=== PATIENT | female | born 1955 | race Caucasian/White ===

== ENCOUNTER 2017-02-28 11:43 | Emergency (ER) | payer OTHER ==
[~2017-02-28] VITALS: Ht 157.5 cm; Wt 85.0 kg
[~2017-02-28 11:43] MED LIST: ADVIN25050 INH; ASPUNK PO; SERT50TA PO; SIMV40TA2 PO; [UNRECOGNIZED DRUG - OTHER] PO
[2017-02-28 11:53] VITALS: TEMP 36.8; Ht 157.5 cm; Wt 85.0 kg
[2017-02-28] MEDS ORDERED: SODIUM CHLORIDE 0.9% 1000ML 1,000 ML IV STA (12:14)
[2017-02-28] MEDS ORDERED: ONDANSETRON INJ 2 MG/ML 2 ML VIAL IV STA (12:14)
[2017-02-28 12:25] LABS: BASO % 0.1 %; BASO ABS # 0.01 K/uL (0-0.2); COMPLETE YES; EOS % 2.1 %; HEMATOCRIT 39.6 % (37-47); IG% 0.1 %; LYMPH ABS # 2.32 K/uL (1.2-3.4); MEAN CELL VOLUME 86.7 fL (80-100); MEAN CORPUSCULAR HGB CONC 34.6 g/dl (32-36); MEAN PLATELET VOLUME 10.9 fL (7.4-10.4); MONO % 11.6 %; NEUT % 55.1 %; PLATELET COUNT 261 K/uL (130-400); RED BLOOD COUNT 4.57 M/uL (4.2-5.4); WHITE BLOOD COUNT 7.48 K/uL (4.8-10.8)
[2017-02-28] MEDS ORDERED: DTRSR/10 PO (12:30)
[2017-02-28] MEDS ORDERED: TPRSR/25 PO (12:30)
[2017-02-28 12:36] LABS: BUN/CREATININE RATIO 15.2 (10-20); CALCIUM 8.8 mg/dl (8.5-10.1); CREATININE 0.83 mg/dl (0.60-1.20); POTASSIUM 4.2 mmol/L (3.5-5.1)
[2017-02-28 13:00] LABS: URINE APPEARANCE CLEAR (CLEAR); URINE BILIRUBIN NEG (NEG); URINE COLOR YELLOW; URINE NITRITE NEG (NEG); URINE SPECIFIC GRAVITY 1.009 (1.000-1.030); UROBILINOGEN NEG (NEG)
[2017-02-28 13:06] LABS: MANUAL MICROSCOPIC REQUIRED? NO; REVIEW REQ? NO
--- NOTE | 2017-02-28 13:38 | DIAGNOSTIC IMAGING REPORT ---
ABDOMINAL ULTRASOUND, RIGHT UPPER QUADRANT HISTORY: Right upper quadrant abdominal pain. COMPARISON: Abdominal ultrasound April 14, 2006. FINDINGS: Liver is sonographically normal. There are multiple stones within the gallbladder as well as sludge. There is no gallbladder wall thickening or pericholecystic fluid. There is no biliary ductal dilatation. The pancreas is obscured by overlying bowel gas. There is no right hydronephrosis. There is a 1.3 cm cystic lesion within the upper pole of the right kidney that contains a thin septation. This is likely benign. There is a possible nonobstructing right renal calculus. IMPRESSION: 1. Cholelithiasis. No gallbladder wall thickening. 2. Obscured pancreas due to overlying bowel gas. 3. No biliary ductal dilatation. Electronically signed by: Davian Mckeon M.D. 02/28/2017 1:37 PM Dictated Date/Time: 02/28/2017 1:34 PM
[2017-02-28 14:32] VITALS: BP 112/70; PULSE 52; O2SAT 98
--- NOTE | 2017-03-01 12:37 | EMERGENCY ROOM VISIT NOTE ---
ED Visit Note First contact with patient: 12:02 Chief Complaint: Abdominal pain. History of Present Illness: Ms. Morgan is a 62 year-old white female who ambulates into the ED complaining of epigastric and right upper quadrant abdominal pain. Historically patient reports Patient was sent into the ED by her PCP, Dr. Alba for her pain, concerning for cholecystitis. Patient reports Monday, 4 days ago, at approximately 9 PM patient reports she had an acute onset of severe right upper quadrant pain. This lasted approximately 8 hours and then self resolved. She describes her discomfort at that time as if something was 'exploding in her abdomen." She rates her discomfort at that time 09/05. The pain was radiating through the abdomen and into the back. Associated with her pain she reports she was nauseated and had multiple episodes of vomiting. She did not take any medications for her symptoms. Currently she denies any abdominal pain but does report that she has tenderness in the epigastrium and right upper quadrant. Her discomfort is only on the areas palpated and sometimes with body movements. She still has not taken any medication for her discomfort prior to arrival at the hospital. She has resolution of vomiting but still feels nauseated, she has noted a "decreased appetite and that food does not taste right", and reports that she has been having occasional chills and questions if she has been having fevers. Currently she denies previous abdominal surgeries, skin eruptions, skin color changes, upper respiratory tract symptoms, shortness of breath, chest pain, diarrhea, constipation, rectal bleeding, black/tarry stools, urinary symptoms, hematuria, vaginal bleeding, vaginal discharge, back/flank pain. Review of Systems: As noted above in history of present illness. All body systems were reviewed and found to be negative as noted above. Past Medical History: Asthma, hypertension, dyslipidemia, anxiety. Current Medications: Medications Dose Route/Sig Max Daily Dose Days Date Category Oxybutynin Chloride ER (Oxybutynin Chloride) 10 Mg Tabcr 1 Tab PO HS 02/28/17 Reported Metoprolol Succinate ER (Metoprolol Succinate) 25 Mg Tabcr 1 Tab PO DAILY 02/28/17 Reported Zocor (Simvastatin) 40 Mg Tab 40 Mg PO QPM 06/04/09 Reported Zoloft (Sertraline HCl) 50 Mg Tab 1 Tab PO HS 06/06/06 Reported Allergies to Medications: Ibuprofen, sulfa. Social History: Patient is currently employed; she feels safe at home environment; she denies tobacco and alcohol use. Physical Examination: Vital Signs: Date Time Temp Pulse Resp B/P Pulse Ox O2 Delivery O2 Flow Rate FiO2 02/28/17 14:32 52 18 112/70 98 02/28/17 13:38 55 18 134/77 98 Room Air 02/28/17 12:56 62 02/28/17 11:53 36.8 56 17 142/77 97 Room Air GENERAL: 62-year-old female in mild distress due to pain, nontoxic-appearing, afebrile and hemodynamically stable. NEUROLOGICAL: Awake, alert and oriented to person, place and time. Answering questions appropriately and following commands. Normal gait. Good hand eye coordination. SKIN: Warm, dry and pink. No soft tissue eruptions or trauma noted. HEENT: Atraumatic and normocephalic. PERRLA. Sclera white and conjunctiva pink. Oral cavity moist and pink. Pharynx is nonerythematous or edematous. Speech normal. No lymphadenopathy. Trachea midline. No jugular venous distention. BACK: No tenderness over the bony spine. No CVA tenderness. THORAX: Lungs sounds are clear to auscultation and equal bilaterally with symmetrical chest wall. No wheezing, rales or rhonchi. No crepitus, tenderness , subcutaneous air or deformities noted. HEART: Regular rate and rhythm. No gallops, rubs or murmurs are appreciated. ABDOMEN: Flat and soft with [id number] tenderness in the epigastrium and right upper quadrant with guarding. Decreased bowel sounds in all quadrants. No rigidity or organomegaly. EXTREMITIES: Moves all extremities well on command and with purpose. All distal neurovascular statuses are intact and equal bilaterally. ED Course: Patient is assessed as noted above. Laboratory Testing: Test 02/28/17 12:05 02/28/17 12:45 Range/Units White Blood Count 7.48 4.8-10.8 K/uL Red Blood Count 4.57 4.2-5.4 M/uL Hemoglobin 13.7 12.0-16.0 g/dL Hematocrit 39.6 37-47 % Mean Corpuscular Volume 86.7 80-100 fL Mean Corpuscular Hemoglobin 30.0 25-34 pg Mean Corpuscular Hemoglobin Concent 34.6 32-36 g/dl Platelet Count 261 130-400 K/uL Mean Platelet Volume 10.9 7.4-10.4 fL Neutrophils (%) (Auto) 55.1 % Lymphocytes (%) (Auto) 31.0 % Monocytes (%) (Auto) 11.6 % Eosinophils (%) (Auto) 2.1 % Basophils (%) (Auto) 0.1 % Neutrophils # (Auto) 4.11 1.4-6.5 K/uL Lymphocytes # (Auto) 2.32 1.2-3.4 K/uL Monocytes # (Auto) 0.87 0.11-0.59 K/uL Eosinophils # (Auto) 0.16 0-0.5 K/uL Basophils # (Auto) 0.01 0-0.2 K/uL RDW Standard Deviation 40.7 36.4-46.3 fL RDW Coefficient of Variation 12.8 11.5-14.5 % Immature Granulocyte % (Auto) 0.1 % Immature Granulocyte # (Auto) 0.01 0.00-0.02 K/uL Sodium Level 141 136-145 mmol/L Potassium Level 4.2 3.5-5.1 mmol/L Chloride Level 106 98-107 mmol/L Carbon Dioxide Level 28 21-32 mmol/L Anion Gap 7.0 3-11 mmol/L Blood Urea Nitrogen 13 7-18 mg/dl Creatinine 0.83 0.60-1.20 mg/dl Est Creatinine Clear Calc Drug Dose 71.1 ml/min Estimated GFR () 87.6 Estimated GFR (Non- 75.6 BUN/Creatinine Ratio 15.2 10-20 Random Glucose 87 70-99 mg/dl Calcium Level 8.8 8.5-10.1 mg/dl Total Bilirubin 0.7 0.2-1 mg/dl Direct Bilirubin 0.2 0-0.2 mg/dl Aspartate Amino Transf (AST/SGOT) 22 15-37 U/L Alanine Aminotransferase (ALT/SGPT) 55 12-78 U/L Alkaline Phosphatase 94 45-117 U/L Total Protein 7.5 6.4-8.2 gm/dl Albumin 4.2 3.4-5.0 gm/dl Lipase 91 73-393 U/L Urine Color YELLOW Urine Appearance CLEAR CLEAR Urine pH 8.0 4.5-7.5 Urine Specific [place] 1.009 1.000-1.030 Urine Protein NEG NEG Urine Glucose (UA) NEG NEG Urine Ketones NEG NEG Urine Occult Blood NEG NEG Urine Nitrite NEG NEG Urine Bilirubin NEG NEG Urine Urobilinogen NEG NEG Urine Leukocyte Esterase NEG NEG RUQ Ultrasound: Was reviewed by myself and read by the radiologist showing cholelithiasis with multiple visible stones and sludge. There was no gallbladder wall thickening or purpura colistin fluid. There is no ductal dilatation. The pancreas wasn't secured by bowel gas. There was no hydronephrosis. There was a cystic lesion in the upper pole right kidney that contains a thin septation of questionable etiology. Patient was hydrated with normal saline and initially received 4 mg of Zofran IV for nausea; she refused pain medications Patient was reassessed multiple times during her stay in the emergency department. Patient's case was reviewed with Dr. Campos; we agreed on diagnostic approach, treatment, disposition and plan. Clinical Impression: Right upper quadrant abdominal pain. Cholelithiasis. Decision-Making: Initially my differential diagnosis I considered hepatitis, pancreatitis, cholecystitis, constipation, bowel obstruction, kidney stone, pyelonephritis and other causes. Disposition: Patient discharged home in stable condition; prior to departure she was reassessed and subjectively reported she was feeling better and was no longer nauseated. I did reassess her abdomen she was dry clipper tender in the right upper quadrant and epigastrium. Plan: Patient was encouraged to use 650 mg of acetaminophen every 6 hours as needed for pain. Patient was encouraged to use a bland diet and avoid late night eating. After her bland diet she should use a low-fat diet. Patient was encouraged to call her family physician and inform them of today's ED visit and request follow-up care and treatment. Patient was referred to Dr. Efe Shaw, general surgery for surgical evaluation. Patient was encouraged return ED for worsening/uncontrolled pain, uncontrolled vomiting, fevers or any new/concerning symptoms. Patient was encouraged to follow-up with personal physician for recheck in 1-2 days. Patient was encouraged return the ED for worsening symptoms, fevers, or any new/ concerning symptoms.
[2017-03-30] MEDS ORDERED: HYDR-5688 PO (09:04)
== END 2017-02-28 14:35 | disposition home or self-care (01) ==
LOC: C.EDB 11:45
DX: R10.11 Right upper quadrant pain (principal); K80.20 Calculus of gallbladder without cholecystitis without obstruction; J45.909 Unspecified asthma, uncomplicated; I10 Essential (primary) hypertension; E78.5 Hyperlipidemia, unspecified

== ENCOUNTER → 2017-03-30 | Day surgery (SDC) | payer OTHER ==
[2017-03-16 11:45] VITALS: BMI 33.0
--- NOTE | 2017-03-16 12:17 | PAT Medication Instructions ---
Service Date Mar 16, 2017. Current Home Medication List Metoprolol Succinate (Metoprolol Succinate ER), 1 TAB PO HS Oxybutynin Chloride (Oxybutynin Chloride ER), 1 TAB PO HS Sertraline (Zoloft), 1 TAB PO HS Simvastatin (Zocor), 40 MG PO QPM Medication Instructions For Your Scheduled Surgery - Take the following medications as scheduled the night before surgery: Simvastatin (Zocor), 40 MG PO QPM Sertraline (Zoloft), 1 TAB PO HS Metoprolol Succinate (Metoprolol Succinate ER), 1 TAB PO HS Oxybutynin Chloride (Oxybutynin Chloride ER), 1 TAB PO HS If you have any questions please call us at [phone] (Dominique Tirado PA-C) or [phone] or [phone]
[~2017-03-30] VITALS: Ht 160 cm; Wt 84.6 kg
[~2017-03-30] MED LIST changes: -ADVIN25050 INH; -ASPUNK PO; +ATROPINE SULFATE 0.1 MG/ML 5ML SYR IV PRN; +BUPIVACAINE/EPINEPHRINE 0.5% MPF 1:200,000 30 ML VIAL ONE; +CEFAZOLIN 2000 MG/60 ML D5W 60 ML IV SCH; +DEXAMETHASONE SOD INJ 4 MG/ML VIAL ONE; +DTRSR/10 PO; +EpHEDrine SULFATE 50MG/5ML SYR ONE; +EpHEDrine SULFATE INJ 50 MG/ML AMP IV PRN; +FENTANYL CITRATE INJ 50 MCG/1 ML 2 ML VIAL IV PRN; +FENTANYL CITRATE INJ 50 MCG/1 ML 2 ML VIAL ONE; +GLYCOPYRROLATE INJ 0.2 MG/ML VIAL ONE; +HEPARIN SOD 5000 UNIT/0.5 ML CARP SC SCH; +HYDR-5688 PO; +HYDROCODONE/ACETAMOPHEN 5/325MG TAB PO PRN; +HydrALAZINE HCL 20 MG/ML VIAL ONE; +LACTATED RINGER'S 1000ML 1,000 ML IV SCH; +LACTATED RINGER'S 1000ML IV SCH; +LIDOCAINE HCL 2% 2 ML VIAL (20MG/ML) ONE; +MIDAZOLAM HCL 1 MG/ML 2ML VIAL ONE; +MoRPHine SULFATE 4 MG/ML 1 ML CARP\\VIAL IV PRN; +NEOSTIGMINE METHYLSULFATE 5 MG/5 ML SYR ONE; +NURSING VERBAL MED ORDER ONE; +ONDANSETRON INJ 2 MG/ML 2 ML VIAL IV PRN; +ONDANSETRON INJ 2 MG/ML 2 ML VIAL ONE; +PROPOFOL IV EMULSION 10 MG/ML 20 ML VIAL IV ONE; +ROCURONIUM BROMIDE 10 MG/ML 5 ML VIAL ONE; +TPRSR/25 PO; -[UNRECOGNIZED DRUG - OTHER] PO
[2017-03-30 07:18] VITALS: BP 133/91; PULSE 63; TEMP 37; O2SAT 98; Ht 160 cm; Wt 84.6 kg
--- NOTE | 2017-03-30 07:49 | History & Physical Bridge Note ---
H&P Re-Evaluation Bridge Note: I have examined the patient, reviewed the History & Physical and in the interval since the performance of the History & Physical I have noted the following changes of clinical significance: No changes noted
--- NOTE | 2017-03-30 09:07 | Discharge Instructions ---
Discharge Instructions Date of Service March 30, 2017. Admission Reason for Admission: Cholelithiasis Discharge Discharge Diagnosis / Problem: Laparoscopic cholecystectomy Discharge Goals Goal(s): Decrease discomfort Activity Recommendations Activity Limitations: as noted below Lifting Limitations: no more than 10 pounds Shower/Bathe: no limitations Driving or Machine Use: resume 3 days after discharge . Instructions / Follow-Up Instructions / Follow-Up Dr. Ornelas in 2 weeks, call [phone] if you do not already have an appt Current Hospital Diet Patient's current hospital diet: Discharge Diet Recommended Diet: Regular Diet Procedures Procedures Performed: Laparoscopic Cholecystectomy Pending Studies Studies pending at discharge: no Medical Emergencies . Who to Call and When: Medical Emergencies: If at any time you feel your situation is an emergency, please call 911 immediately. . Non-Emergent Contact Non-Emergency issues call your: Surgeon Call Non-Emergent contact if: you have a fever, temperature is above 101.5, your pain is not controlled, wound has increased redness . "Provider Documentation" section prepared by Chato Marin. . VTE Core Measure Inpt VTE Proph given/why not?: SCD's
--- NOTE | 2017-03-30 09:08 | [facility] Operative Report ---
Operative Report Operative Date March 30, 2017. Pre-Operative Diagnosis Cholelithiasis Post-Operative Diagnosis same Procedure(s) Performed lap leola Surgeon Dr Efe Ornelas Industrial Engineering Technologist Surgeon(s) Chato Marin Estimated Blood Loss 10ml Findings normal anatomy Specimens A: Gallbladder and contents Anesthesia get Complication(s) None Disposition Recovery Room / PACU I attest to the content of the Intraoperative Record and any orders documented therein. Any exceptions are noted below.
[2017-03-30 10:00] VITALS: BP 151/77; PULSE 65; TEMP 36.6; O2SAT 93
--- NOTE | 2017-03-30 10:10 | Anesthesiology Progress Note ---
Anesthesia Post Op Note Date & Time March 30, 2017 at 10:09 Vital Signs Pain Intensity: 5 Vital Signs Past 12 Hours Date Time Temp Pulse Resp B/P Pulse Ox O2 Delivery O2 Flow Rate FiO2 03/30/17 09:55 66 14 164/84 94 03/30/17 09:51 66 10 92 03/30/17 09:51 67 10 03/30/17 09:50 36.6 65 14 164/66 94 Mask 03/30/17 09:50 164/66 03/30/17 09:46 67 15 162/83 100 03/30/17 09:46 67 15 03/30/17 09:41 68 13 03/30/17 09:41 67 13 95 03/30/17 09:40 175/82 03/30/17 09:39 167/82 03/30/17 09:36 67 12 95 03/30/17 09:36 67 12 03/30/17 09:35 189/90 03/30/17 09:35 189/90 03/30/17 09:34 66 12 03/30/17 09:34 66 12 03/30/17 09:34 66 12 97 03/30/17 09:34 66 12 97 03/30/17 09:30 192/97 03/30/17 09:30 192/97 03/30/17 09:29 67 13 99 03/30/17 09:29 68 13 03/30/17 09:29 68 13 03/30/17 09:29 67 13 99 03/30/17 09:25 191/89 03/30/17 09:25 191/89 03/30/17 09:24 70 10 100 03/30/17 09:24 70 10 100 03/30/17 09:24 69 10 03/30/17 09:24 69 10 03/30/17 09:20 190/97 03/30/17 09:20 190/97 03/30/17 09:19 71 10 03/30/17 09:19 71 10 03/30/17 09:19 71 10 98 03/30/17 09:19 71 10 98 03/30/17 09:15 197/99 03/30/17 09:15 197/99 03/30/17 09:14 77 19 192/102 100 03/30/17 09:14 77 19 192/102 100 03/30/17 09:14 77 19 03/30/17 09:14 77 19 03/30/17 09:10 184/102 03/30/17 09:10 184/102 03/30/17 09:09 36.4 90 16 153/97 98 Mask 10 03/30/17 09:09 86 16 03/30/17 09:09 86 16 153/97 99 03/30/17 09:09 86 16 153/97 99 03/30/17 09:09 86 16 03/30/17 07:18 37. 63 18 133/91 98 Room Air Notes Mental Status: alert / awake / arousable, participated in evaluation Pt Amnestic to Procedure: Yes Nausea / Vomiting: adequately controlled Pain: adequately controlled Airway Patency, RR, SpO2: stable & adequate BP & HR: stable & adequate Hydration State: stable & adequate Anesthetic Complications: no major complications apparent
[2017-03-30 10:30] VITALS: BP 164/73; PULSE 69; TEMP 36.7; O2SAT 99
--- NOTE | 2017-03-31 11:32 | OPERATIVE REPORT ---
DATE OF OPERATION: 03/30/2017 PREOPERATIVE DIAGNOSIS: Symptomatic cholelithiasis. POSTOPERATIVE DIAGNOSIS: Same. PROCEDURE: Laparoscopic cholecystectomy. SURGEON: Dr. Ornelas. PROTOCOL OFFICER: Misael Marin PA-C. ESTIMATED BLOOD LOSS: Approximately 10 mL. COMPLICATIONS: No immediate. ANESTHESIA: General. The patient tolerated the procedure well. OPERATION AND FINDINGS: OPERATIVE NOTE: After informed consent was obtained, the patient was taken to the operating suite and placed in supine position. After successful intubation, the abdomen was sterilely prepped and draped in usual fashion. A periumbilical incision made with an 11 blade scalpel and carried down through the soft tissue using electrocautery. Anterior rectus fascia was opened using electrocautery and two #0 Vicryl stay sutures were placed. Peritoneum was entered using blunt finger penetration. A finger sweep was performed to take down adhesions. A 12 mm Majo trocar was placed and the abdomen was insufflated to 18 mmHg. Laparoscope was inserted and the abdomen examined 360 degrees. A subxiphoid 5 mm port and 2 right upper quadrant 5 mm ports were placed under direct vision. The patient was placed in reverse Trendelenburg position slightly airplaned to the left. The gallbladder was grasped and elevated superiorly and laterally. It was not acutely inflamed. We were able to use a [place] dissector to take down adhesions around the neck of the gallbladder. The cystic duct was identified and skeletonized. It was clipped in place proximally and once distally and transected using laparoscopic scissor. In similar fashion, the cystic artery was identified, skeletonized, clipped and divided as well. The gallbladder was removed from the gallbladder fossa intact. It was placed into an EndoCatch bag. Any small bleeding points in the gallbladder fossa were controlled using electrocautery. Thorough irrigation was performed. At the end of the procedure, there was adequate hemostasis and no evidence of any bile leakage. We looked under the left lobe of the liver around the upper abdomen and saw no other gross abnormalities. The gallbladder was removed from the umbilical incision and all the trocars were removed and the abdomen was desufflated. The fascia of the camera port was closed using 0 Vicryl in a [id number] fashion. All the wounds were irrigated and closed using 4-0 Monocryl. Marcaine was injected around them for postoperative analgesia and skin glue used as a dressing. The patient was awakened, extubated, and transferred to recovery in stable condition. I attest to the content of the Intraoperative Record and any orders documented therein. Any exceptio ns are noted below.
== END | disposition home or self-care (01) ==
LOC: C.ACU 06:53
PROVIDERS: ATTEND Surgery
DX: K80.12 Calculus of gallbladder with acute and chronic cholecystitis without obstruction (principal); J45.909 Unspecified asthma, uncomplicated; Z85.43 Personal history of malignant neoplasm of ovary; Z79.899 Other long term (current) drug therapy

== ENCOUNTER → 2017-08-21 | Outpatient (CLI) | payer OTHER ==
[~2017-08-21] MED LIST changes: -ATROPINE SULFATE 0.1 MG/ML 5ML SYR IV PRN; -BUPIVACAINE/EPINEPHRINE 0.5% MPF 1:200,000 30 ML VIAL ONE; -CEFAZOLIN 2000 MG/60 ML D5W 60 ML IV SCH; -DEXAMETHASONE SOD INJ 4 MG/ML VIAL ONE; -EpHEDrine SULFATE 50MG/5ML SYR ONE; -EpHEDrine SULFATE INJ 50 MG/ML AMP IV PRN; -FENTANYL CITRATE INJ 50 MCG/1 ML 2 ML VIAL IV PRN; -FENTANYL CITRATE INJ 50 MCG/1 ML 2 ML VIAL ONE; -GLYCOPYRROLATE INJ 0.2 MG/ML VIAL ONE; -HEPARIN SOD 5000 UNIT/0.5 ML CARP SC SCH; -HYDROCODONE/ACETAMOPHEN 5/325MG TAB PO PRN; -HydrALAZINE HCL 20 MG/ML VIAL ONE; -LACTATED RINGER'S 1000ML 1,000 ML IV SCH; -LACTATED RINGER'S 1000ML IV SCH; -LIDOCAINE HCL 2% 2 ML VIAL (20MG/ML) ONE; -MIDAZOLAM HCL 1 MG/ML 2ML VIAL ONE; -MoRPHine SULFATE 4 MG/ML 1 ML CARP\\VIAL IV PRN; -NEOSTIGMINE METHYLSULFATE 5 MG/5 ML SYR ONE; -NURSING VERBAL MED ORDER ONE; -ONDANSETRON INJ 2 MG/ML 2 ML VIAL IV PRN; -ONDANSETRON INJ 2 MG/ML 2 ML VIAL ONE; +OPTIRAY 320 IV PRN; -PROPOFOL IV EMULSION 10 MG/ML 20 ML VIAL IV ONE; -ROCURONIUM BROMIDE 10 MG/ML 5 ML VIAL ONE
--- NOTE | 2017-08-21 19:39 | DIAGNOSTIC IMAGING REPORT ---
CT ABD/PELVIS COMBO WITH ORAL CLINICAL HISTORY: RLQ PAIN,GUARDING COMPARISON STUDY: None. TECHNIQUE: The patient was scanned following administration of dilute oral contrast. Unenhanced images were obtained the abdomen and pelvis. The patient was then rescanned in a dynamic helical fashion during intravenous administration 125 cc of Optiray 320. A dose lowering technique was utilized adhering to the principles of ALARA. CT DOSE: 1373.71 mGy.cm FINDINGS: Lower chest: There is a hiatal hernia present Liver: The contrast-enhanced liver is normal in size, contour, and attenuation. There is no intrahepatic biliary ductal dilatation. The hepatic veins and portal veins are patent. Gallbladder: Surgically absent Spleen: Normal in size and attenuation. Pancreas: Unremarkable. Adrenal glands: Unremarkable. Kidneys: No renal, ureteral, or bladder calculi are visualized. Multiple pelvic basin calcifications are felt to represent phleboliths. There is a 15 mm right renal lesion. This demonstrates a precontrast attenuation value of 18, and a postcontrast attenuation value of 28. This 10 degrees difference likely represents synovial enhancement and this lesion likely represents a cyst Bowel: There are no transition zones to indicate bowel obstruction. There is no acute diverticulitis. The appendix appears normal. Scattered colonic diverticula are identified Peritoneum: There is no intraperitoneal free air or abdominal ascites. Vasculature: The abdominal aorta is normal in course and caliber. Adenopathy: None. Pelvic viscera: The uterus appears surgically absent Skeletal structures: There are postsurgical changes present within the lumbar spine. IMPRESSION: 1. No renal, ureteral, or bladder calculi identified 2. No evidence of bowel obstruction. No evidence of free air 3. No evidence of acute diverticulitis 4. Normal appendix Electronically signed by: Alex Delaney M.D. 08/21/2017 7:38 PM Dictated Date/Time: 08/21/2017 7:30 PM
== END | disposition home or self-care (01) ==
LOC: C.CTS 17:06
PROVIDERS: ATTEND Family Medicine
DX: R10.31 Right lower quadrant pain (principal)